=== PATIENT | female | born 1985 | race Caucasian/White ===

== ENCOUNTER 2021-10-11 22:00 | Emergency (ER) | payer SELFPAY ==
[2021-10-11 22:28] VITALS: TEMP 97.6; BMI 29.9
[2021-10-12 01:50] VITALS: BP 128/90; PULSE 70
== END 2021-10-12 01:50 | disposition short-term general hospital (02) ==
LOC: JER 22:00
DX: F41.9 Anxiety disorder, unspecified (principal); T74.21XA Adult sexual abuse, confirmed, initial encounter
CPT/HCPCS: 99285-25